=== PATIENT | female | born 1950 | race Caucasian/White ===

== ENCOUNTER 2023-08-03 14:30 | Outpatient (REF) | payer MEDICARE, OTHER, SELFPAY ==
[2023-08-03 15:33] LABS: Influenza A PCR NEGATIVE (Negative); Influenza B PCR NEGATIVE (Negative); Resp Syncy Virus RNA Qual PCR NEGATIVE (Negative); SARS COV2 PCR INHOUSE NEGATIVE (Negative)
== END 2023-08-03 14:31 | disposition home or self-care (01) ==
LOC: HO.LNP 14:30
PROVIDERS: Visit Provider Hospitalist
DX: Z11.52 Encounter for screening for COVID-19 (principal); Z20.822 Contact with and (suspected) exposure to COVID-19; J02.9 Acute pharyngitis, unspecified; R09.89 Other specified symptoms and signs involving the circulatory and respiratory systems
CPT/HCPCS: 0241U

== ENCOUNTER → 2024-05-14 15:01 | Outpatient (BNVA) | payer OTHER, SELFPAY | PROVIDERS: PCP Urology; Visit Provider Physician Assistant Medical | DX: S80.01XA Contusion of right knee, initial encounter (principal); S80.02XA Contusion of left knee, initial encounter; W01.0XXA Fall on same level from slipping, tripping and stumbling without subsequent striking against object, initial encounter | CPT/HCPCS: 73564; 99203 ==

== ENCOUNTER → 2024-05-19 11:53 | Outpatient (BNVA) | payer OTHER, SELFPAY | PROVIDERS: PCP Urology; Visit Provider Physician Assistant Medical | DX: S80.01XA Contusion of right knee, initial encounter (principal); S80.02XA Contusion of left knee, initial encounter; W01.0XXA Fall on same level from slipping, tripping and stumbling without subsequent striking against object, initial encounter | CPT/HCPCS: 99213 ==

== ENCOUNTER → 2024-05-22 15:33 | Outpatient (BNVA) | payer OTHER, SELFPAY | PROVIDERS: PCP Urology; Visit Provider Physician Assistant Medical | DX: S80.02XD Contusion of left knee, subsequent encounter (principal); S80.211D Abrasion, right knee, subsequent encounter; W01.0XXD Fall on same level from slipping, tripping and stumbling without subsequent striking against object, subsequent encounter | CPT/HCPCS: 99213 ==

== ENCOUNTER → 2024-06-02 14:53 | Outpatient (BNVA) | payer OTHER, SELFPAY | PROVIDERS: PCP Urology; Visit Provider Physician Assistant Medical | DX: S80.01XD Contusion of right knee, subsequent encounter (principal); S80.02XD Contusion of left knee, subsequent encounter; W01.0XXD Fall on same level from slipping, tripping and stumbling without subsequent striking against object, subsequent encounter | CPT/HCPCS: 99213 ==

== ENCOUNTER 2024-06-02 16:10 | Emergency (ER) | payer MEDICARE, OTHER, SELFPAY ==
--- NOTE | ~2024-06-02 | XR_ITS ---
EXAMINATION: X-ray right knee X-ray left knee CLINICAL INFORMATION: Fall. Right knee open wound COMPARISON: X-ray right knee 05/14/2024 TECHNIQUE: Right knee 4 views. Left knee 4 views. FINDINGS: Right knee: Tricompartment marginal spurring. Moderate to severe patellofemoral arthritis. No evidence of acute fracture, malalignment. No destructive lesion. Superior patella enthesopathy. Trace suprapatellar joint fluid. The clinically reported wound is not clearly evident on x-ray. Apparent soft tissue swelling anterior to the proximal tibia. Left knee: Marginal spurring in the 3 compartments. Moderate patellofemoral arthritis. No or evidence of acute fracture, malalignment. No aggressive bony lesion seen. Small ossific density in the posterior joint space, could reflect a loose body. XR/XR knee LT 4V IMPRESSION: Right knee: Degenerative changes. No evidence of acute fracture. Left knee: Degenerative changes. No evidence of acute fracture. Possible small posterior loose body..
--- NOTE | ~2024-06-02 | XR_ITS ---
EXAMINATION: X-ray right knee X-ray left knee CLINICAL INFORMATION: Fall. Right knee open wound COMPARISON: X-ray right knee 05/14/2024 TECHNIQUE: Right knee 4 views. Left knee 4 views. FINDINGS: Right knee: Tricompartment marginal spurring. Moderate to severe patellofemoral arthritis. No evidence of acute fracture, malalignment. No destructive lesion. Superior patella enthesopathy. Trace suprapatellar joint fluid. The clinically reported wound is not clearly evident on x-ray. Apparent soft tissue swelling anterior to the proximal tibia. Left knee: Marginal spurring in the 3 compartments. Moderate patellofemoral arthritis. No or evidence of acute fracture, malalignment. No aggressive bony lesion seen. Small ossific density in the posterior joint space, could reflect a loose body. XR/XR knee RT 4V IMPRESSION: Right knee: Degenerative changes. No evidence of acute fracture. Left knee: Degenerative changes. No evidence of acute fracture. Possible small posterior loose body..
[2024-06-02 17:05] VITALS: BP 129/68; PULSE 73; RESP 18; O2SAT 99; BMI 75.8
--- NOTE | 2024-06-02 17:05 | ED_ITS ---
HPI - Fall General Chief Complaint: Fall Stated Complaint: Fell on [facility] Property Time Seen by Provider: 06/02/24 20:57 Source: patient and old records reviewed Mode of arrival: ambulatory Limitations: no limitations History of Present Illness ED Provider: MONTY QUIROGA Narrative: 73 yo female not on thinners being evaluated at work connection for R knee pain post fall at work then leaving appointment trip and fall outside no head strike or LOC has pain to both knees and abrasion R knee landed on hands - no headstrike was helped up. She is at baseline no confusion or vomiting MD complaint: fall Onset (ago): minute(s) ([employer]) Fall from: standing Fall witnessed: yes, by bystander Place fall occurred: street Loss of consciousness: none Prolonged down time: no Symptoms prior to fall: none Context: tripped/slipped Location of injury: other (both hands) Location of injury - extremities: bilateral: elbow and knee Severity: mild Quality: dull Associated symptoms (after fall): denies Related Data Previous Rx's ?Medication ?Instructions ?Recorded doxycycline monohydrate 100 mg 100 mg PO BID 14 days #28 tabs 08/03/23 tablet cephalexin 250 mg capsule 250 mg PO QID 10 days #40 caps 05/22/24 cane #1 ea 06/02/24 Allergies Allergy/AdvReac Type Severity Reaction Status Date / Time crab Allergy Hives Verified 06/02/24 17:10 codeine AdvReac Anxiety Verified 06/02/24 17:09 Sulfa (Sulfonamide AdvReac Nausea Verified 06/02/24 17:09 Antibiotics) Review of Systems Review of Systems: Constitutional : No Fever, No Chills ENT/Mouth : No Ear Pain, No Hoarseness, No sore throat Eyes: No Eye Pain, No Swelling, No Redness, No Foreign Body Cardiovascular : No Chest Pain, No SOB Respiratory : No Cough, No Dyspnea Gastrointestinal : No Nausea, No Vomiting, No Diarrhea, No abdominal Pain Genitourinary : No Dysuria, No Hematuria Musculoskeletal : positive joint pain, No Myalgias, pos Joint Swelling Skin : No Skin lacerations, No rash, pos abrasions Neuro : No Weakness, No Numbness, No Loss of Consciousness, No Dizziness, No Headache All other systems reviewed and are negative [facility] Past Medical History Attestation statement: The following information was validated with the patient. Source: old records reviewed Medical History Sore throat Social History Social History (Updated 06/02/24 @ 21:38 by Katy James DO) Patient Tobacco Use Status: Never used Tobacco Physical Exam Vital Signs: Vital Signs: Last Vital Signs Temp 98.3 F 06/02/24 20:57 Pulse 68 06/02/24 20:57 Resp 16 06/02/24 20:57 BP 138/66 06/02/24 20:57 Pulse Ox 100 06/02/24 20:57 O2 Del Method Room Air 06/02/24 20:57 BMI result Body Mass Index 75.8 Appearance: Alert. Oriented X3. No acute distress. Eyes: Pupils equal, round and reactive to light. ENT: Pharynx normal. atraumatic Neck: Normal inspection. Neck supple. CVS: Normal heart rate and rhythm. Pulses normal. Respiratory: No respiratory distress. Breath sounds normal. Abdomen: Soft and nontender. Skin: Skin warm and dry. Normal skin color. Normal skin turgor. Extremities: No lower extremity edema. No calf ttp both hand mild contusion but normal ROM no swelling or deformity NV intact elbows normal ROM no crepitus, both knees contusion R knee superficial abrasion distal NV intact Neuro: Oriented X 3. No motor deficit. No sensory deficit. Course Course Course Narrative: This is a Rapid Medical Examination (RME) performed by Jarocho Payton PA-C in triage. Full HPI, ROS, assessment and treatment plan per primary provider in the Main ED. 73 yo female presents to the ER for evaluation of bilateral knee pain after she tripped and fell on uneven concrete while she was walking out of [employer]. She fell onto both knees, scraping the right knee and resulting in 6/10 pain. She couldnt get up on her own but was able to ambulate when she was helped up. superficial abrasion on right knee. patient wants to make sure she doesnt have a fracture as this is a repeat injury. Plan: XR bilateral knees Medical Decision Making Medical Decision Making MDM Narrative: 73 yo female recent R knee injury being treated at work connection tripped outside work connection isolated injury to the R knee/L knee and both hands has contusion to R knee no head or neck trauma normal ROM and exam to both hands all extremities she is NV intact at this time xrays ordered, wound care. will write Rx for cane. No head or neck trauma GCS 15 and not on thinners Differential Diagnosis Differential Diagnoses: The differential diagnosis associated with the presentation includes sprain, strain, contusion, fracture Admission/Observation Consideration of admission/observation: Escalation of care including admission/observation considered at baseline stable for DC Independent Interpretation I performed an independent interpretation of an: Plain X-Ray (no fracture) Radiology Impression Discussion of test interpretation with radiology: I have reviewed the radiologist's reading. Independent Historian Clinical information obtained from an independent historian. History obtained from or confirmed by: Friend External Record Review External record reviewed: Outpatient record Prescription Management I considered prescription management with: Pain Medication Discharge Plan Discharge Clinical Impression: Abrasion Contusion of knee Qualifiers: Encounter type: initial encounter Laterality: right Qualified Code(s): S80.01XA - Contusion of right knee, initial encounter Contusion of hand Qualifiers: Encounter type: initial encounter Laterality: unspecified laterality Qualified Code(s): S60.229A - Contusion of unspecified hand, initial encounter Patient Disposition: Home, Self-Care Instructions: Contusion in Adults (ED), Abrasion (ED) Additional Instructions: continue to follow up with work connection and your doctor change dressing daily monitor for redness, yellow drainage, increased pain or swelling get a cane for the knee if you need it will order one prescription you can take to medical supply store use antibiotic ointment on the knee twice a day no fractures seen on xray discussed small fragment seen posterior L knee no pain at that site Prescriptions: New (DME) cane Device See Rx Instructions .Route Qty: 1 0RF Rx Instructions: As directed No Action doxycycline monohydrate 100 mg tablet 100 mg PO BID 14 Days Qty: 28 0RF cephalexin 250 mg capsule 250 mg PO QID 10 Days Qty: 40 0RF Print Language: Irish
[2024-06-02 20:57] VITALS: BP 138/66; PULSE 68; RESP 16; TEMP 36.8; O2SAT 100
[2024-06-02 22:28] VITALS: BP 138/66; PULSE 68; RESP 16; TEMP 36.8; O2SAT 100
--- OUTSIDE RECORDS SUMMARY | 2024-06-04 07:54 | XMS_ITS | Continuity of Care Document ---
Author Organization [facility] Address [address] [place] [address]- Care Team Providers Care Assembler Body Name Role Phone Srinath Baker MD Primary Care Physician Encounter [facility] Date(s): 11/01/23 - 12/01/23 [facility] [address] [place] [address]- Allergies, Adverse Reactions, Alerts Substance Reaction Severity Status codeine Active sulfamethoxazole Active cortisone Active Dust Active Pet Dander Active Problem List Condition Confirmation Course Effective Dates Status H ealth Status Informant Arthritis Confirmed Active Herpes simplex vulvovaginitis Confirmed Active Obese class I Confirmed Active Obesity Confirmed Active Urinary urgency Confirmed Active Chicken pox Confirmed Active Vulvitis Confirmed Active Social History Social History Type Response Smoking Status Never smoker entered on: 02/20/14 Sex Patient Care team information Care Team Personnel Name: Srinath Baker MD Position: S Physician - Primary Care Member Role: PCP Address: Address: [address] [place] [address] Care Team Related Persons Name: ESTRELLA RICHEY Address: home [address] [place] [id number] Name: PAOLA TORRES Address: home [address] [place] [address]
--- OUTSIDE RECORDS SUMMARY | 2024-06-04 07:54 | XMS_ITS | Continuity of Care Document ---
Author Organization [facility] Address [address] [place] [address]- Care Team Providers Care Skid Worker Name Role Phone Srinath Baker MD Primary Care Physician [phone] Encounter [facility] Date(s): 05/21/24 - 05/28/24 [facility] [address] [place] [address]- Attending Physician: Gregg HOYOS, Shalini Dixon Allergies, Adverse Reactions, Alerts Substance Reaction Severity Status codeine Active sulfamethoxazole Active cortisone Active Pet Dander Active Dust Active Medications Multivitamin 0 Refills, Maintenance, 01/18/24 11:44:00 EDT, Partial fill upon patient request if the prescription is for a schedule II opioid drug. Start Date: 01/18/24 Status: Ordered Valtrex 500 mg oral tablet 500 mg, 1, tablet, By Mouth, 2 times a day, for 5 days, # 10 tablet, Refills 0, Tot. Refills 0, Acute 06/01/24 10:26:00 EDT, 05/27/24 10:26:00 EDT, Route to Pharmacy Electronically, [facility]/pharmacy #[id number], Partial fill upon patient request if the prescrip... Start Date: 05/27/24 Stop Date: 06/01/24 Status: Ordered Vitamin A Daily, 0 Refills, Maintenance, 01/18/24 11:44:00 EDT, Partial fill upon patient request if the prescription is for a schedule II opioid drug. Start Date: 01/18/24 Status: Ordered Vitamin D3 1000 intl units oral capsule 1 capsule = 25 mcg, By Mouth, Daily, 0 Refills, Maintenance, 01/18/24 11:44:00 EDT, Partial fill upon patient request if the prescription is for a schedule II opioid drug. Start Date: 01/18/24 Status: Ordered Problem List Condition Confirmation Course Effective Dates Status H ealth Status Informant Arthritis Confirmed Active Herpes simplex vulvovaginitis Confirmed Active Obese class I Confirmed Active Obesity Confirmed Active Urinary urgency Confirmed Active Chicken pox Confirmed Active Vulvitis Confirmed Active Vital Signs Most recent to oldest [Reference Range]: 1 Height 156.0 cm (05/21/24 4:29 PM) Weight 84.0 kg (05/21/24 4:29 PM) Body Mass Index [18.5-24.99 kg/m2] 34.52 kg/m2 *>HHI* (05/21/24 4:29 PM) Blood Pressure [90-138/55-84 mm Hg] 132/ 82mm Hg (05/21/24 4:29 PM) Blood pressure sites Arm, left (05/21/24 4:29 PM) Weight Obtained Via Standing scale (05/21/24 4:29 PM) Social History Social History Type Response Smoking Status Never smoker entered on: 02/20/14 Sex Note * Liu Johnson: PERFORM Event Display: Patient Education/Instruction Authored Date: [id number] Ambulatory Adult Visit Summary [facility] [address] [place] [address] Name: ELAINE KNOWLES : 1950?? Visit: 05/21/2024 16:19?? Ambulatory Visit Instructions ?? Your Care Team Primary Care Provider Samuel CHILDS, Srinath Brito? This Visit Provider Gregg HOYOS, Shalini Dixon Your Diagnosis Ulceration of vulva Vitals Signs Systolic Blood Pressure: 132 mm Hg Height: 156 cm Diastolic Blood Pressure: 82 mm Hg Weight: 84 kg ?? Body Mass Index:??34.52 kg/m2??Critical ?? Body surface area: 1.91 What to do next Future Orders HSV1 And 2 PCR On Lesion - Routine, Vulva, Once, Collected, 05/21/24 16:40:00 EDT, [facility], Swab?? Medications The list below reflects the information in our records and provided by you today along with any changes made during this visit. Please continue your medications until treatment is completed or stopped by your provider. If this is different from the information you have or there are other questions,please contact the prescribing provider. What How Much When Instructions Unchanged Cholecalciferol (Vitamin D3 1000 intl units oral capsule) 1 capsule Oral Daily Unchanged Multivitamin Unchanged Vitamin A Daily Test Performed Below is a partial list of the tests performed during your Visit. You may have had other tests and procedures not included in this list. Please discuss all test results with your provider. HSV1 And 2 PCR On Lesion?-- Results Pending -- Medications and Immunizations Administered Medications Given During Visit No medications given during this visit.?? Allergies (NKA means No Known Allergies) Dust Pet Dander codeine cortisone sulfamethoxazole Common Emergency Awareness Tips IS IT A STROKE? Act FAST and Check for these signs: FACE Does the face look uneven? ARM Does one arm drift down? SPEECH Does their speech sound strange? TIME Call at any sign of stroke ?? Heart Attack Signs Chest discomfort: Most heart attacks involve discomfort in the center of the chest and lasts more than a few minutes, or goes away and comes back. It can feel like uncomfortable pressure, squeezing, fullness or pain. Discomfort in upper body: Symptoms can include pain or discomfort in one or both arms, back, neck, jaw or stomach. Shortness of breath: With or without discomfort. Other signs: Breaking out in a cold sweat, nausea, or lightheaded. Remember, MINUTES DO MATTER. If you experience any of these heart attack warning signs, call to get immediate medical attention! ?? Smoking can increase your chances of developing chronic health problems and can cause harmful effects to other family members in your house. If you smoke, you are strongly encouraged to quit. Please call [facility] at [phone] or [phone] ([phone]) or log in to [email or web address] for referrals to smoking cessation programs. ?? The National Suicide Prevention Hotline is available 07/05 if you or someone you know needs to find a reason to keep living. By calling 8-285-460-[employer] (7031) you'll be connected to a skilled, trained counselor at a crisis center in your area. [facility] Health Portal You can view and manage your care through the patient portal or by using a health care anjana of your choosing. [employer] is a website that allows you to securely view your medical information including your hospital discharge summary, office visit summaries, medications and follow-up visits. You can also request appointments, renew medications, and request access to your medical information using a health care anjana of your choosing, or just ask a question. You can enroll at [email or web address] or register during your next office visit. [facility], in keeping with [facility] guidance, no longer requires face masks for staff, patientsor visitors in most situations. Similiar to time spent indoors at other locations, there is the chance that you were exposed to repiratory viruses during your time with us (such as flu or COVID-19). If you develop symptoms concerning for a viral respiratory infection, please seek testing (and treatment if indicated) from your medical provider or home test kit. ?? Disclaimer: The information provided is of a general nature and is intended to be used in conjunction with the recommendations and advice of your health care practitioner. Every effort has been made to ensure that the information provided is accurate and complete at the time it is provided to you however, as your needs change, or, as new information becomes available, different or additional instructions may be required. ?? If you have questions, please consult with your primary care provider or pharmacist, as appropriate. This information is not intended to serve as substitution for assessment and evaluation by a qualified health care provider. If you do not have a primary care provider, you may find a [facility] provider by calling [facility] [employer] Link at [phone]. Patient Care team information Care Team Personnel Name: Srinath Baker MD Position: [facility] Physician - Primary Care Member Role: PCP Address: Address: [address] [place] [address]- Care Team Related Persons Name: ESTRELLA RICHEY Address: home [address] [place] [address] Name: PAOLA TORRES Address: home [address] [place] [address]
--- OUTSIDE RECORDS SUMMARY | 2024-06-04 07:54 | XMS_ITS | Continuity of Care Document ---
[facility] Address [address] [place] [address]- Care Team Providers Care Beef Breaker Name Role Phone Srinath Baker MD Primary Care Physician Encounter [facility] Date(s): 07/20/22 - 08/19/22 [facility] [address] [place] [address]- Attending Physician: Harvey Pennington Admitting Physician: Harvey Pennington Referring Physician: AdmtrHarvey Allergies, Adverse Reactions, Alerts Substance Reaction Severity Status codeine Active sulfamethoxazole Active cortisone Active Medications Aveeno Anti-Itch 3%-1% topical cream 1 application, Topically, 4 times a day, PRN for itching, # 30 Gm, 0 Refills, Maintenance, 229:38:00 EDT, Cream, Partial fill upon patient request if the prescription is for a schedule II opioid drug. Start Date: 04/19/22 Status: Ordered Estrace Vaginal Cream 0.1 mg/g See Instructions, 1 Gm Vaginally Daily at bedtime every night for 2 weeks and then 2-3 times a weekafter that, # 42.5 Gm, 0 Refills, Maintenance, 04/19/22 11:53:00 EDT, [facility]/pharmacy #[id number], Partial fill upon patient request if the prescription is for... Start Date: 04/19/22 Status: Ordered Flonase Daily, 0 Refills, Maintenance, 05/14/18 8:36:48 EDT Start Date: 05/14/18 Status: Ordered Hydrochlorothiazide = 25 mg, By Mouth, Daily, 0 Refills, Maintenance, 02/20/14 10:08:38 Start Date: 02/20/14 Status: Ordered HydroCORTisone 1% Topical 0 Refills, Maintenance Start Date: 04/19/22 Status: Ordered Pravastatin By Mouth, Daily at bedtime, 0 Refills, Maintenance, 05/01/16 16:37:09 Start Date: 05/01/16 Status: Ordered Restasis 0.05% ophthalmic emulsion 1 drops, Eyes, Both, Every 12 hours, 0 Refills, Maintenance, 05/01/16 16:36:53 Start Date: 05/01/16 Status: Ordered Singulair By Mouth, Daily, 0 Refills, Maintenance, 05/14/18 8:36:43 EDT Start Date: 05/14/18 Status: Ordered Triple Antibiotic Topically, 3 times a day, 0 Refills, Maintenance, 04/19/22 9:37:00 EDT, Partial fill upon patient request if the prescription is for a schedule II opioid drug. Start Date: 04/19/22 Status: Ordered Vitamin D3 2000 intl units oral capsule 1 capsule = 2,000 International_Units, By Mouth, Daily, 0 Refills, Maintenance, 02/20/14 10:08:50 Start Date: 02/20/14 Status: Ordered Problem List Condition Confirmation Course Effective Dates Status Health St [facility] Informant Obese class I Confirmed Active Obesity Confirmed Active Social History Social History Type Response Smoking Status Never smoker entered on: 02/20/14 Sex Patient Care team information Personnel Name: Srinath Baker MD Address: Address: [address] [place] [id number]
--- OUTSIDE RECORDS SUMMARY | 2024-06-04 07:54 | XMS_ITS | Continuity of Care Document ---
Author Organization [facility] Address [address] [place] [address]- Care Team Providers Care Deck Cadet Name Role Phone Srinath Baker MD Primary Care Physician Encounter [facility] Date(s): 04/21/24 - 04/28/24 [facility] [address] [place] [address]- Attending Physician: Gregg HOYOS, Shalini Dixon Allergies, Adverse Reactions, Alerts Substance Reaction Severity Status codeine Active sulfamethoxazole Active cortisone Active Dust Active Pet Dander Active Medications Multivitamin 0 Refills, Maintenance, 01/18/24 11:44:00 EDT, Partial fill upon patient request if the prescription is for a schedule II opioid drug. Start Date: 01/18/24 Status: Ordered Vitamin A Daily, 0 Refills, [...] oldest [Reference Range]: 1 Height 156.0 cm (04/21/24 9:28 AM) Weight 83.4 kg (04/21/24 9:28 AM) Body Mass Index [18.5-24.99 kg/m2] 34.27 kg/m2 *>HHI* (04/21/24 9:28 AM) Blood Pressure [90-138/55-84 mm Hg] 120/ 68mm Hg (04/21/24 9:28 AM) Blood pressure sites Arm, left (04/21/24 9:28 AM) Weight Obtained Via Standing scale (04/21/24 9:28 AM) Social History Social History Type Response Smoking Status Never smoker entered on: 02/20/14 Sex Patient Care team information Care Team Personnel Name: Srinath Baker MD Position: [facility] Physician - Primary Care Member Role: PCP Address: Address: [address] [place] [address]- Care Team Related Persons Name: ESTRELLA RICHEY Address: home [address] [place] [id number] Name: PAOLA TORRES Address: home [address] [address]
--- OUTSIDE RECORDS SUMMARY | 2024-06-04 07:54 | XMS_ITS | Continuity of Care Document ---
Author Organization [facility] Address [address] [place] [address]- Care Team Providers Care Correspondence Transcriber Name Role Phone Srinath Baker MD Primary Care Physician En[place] [facility] [place] Date(s): 06/22/22 - 07/22/22 [facility] [address] [place], [place] [address] Allergies, Adverse Reactions, Alerts Substance Reaction Severity Status codeine Active sulfamethoxazole Active cortisone Active Medications Aveeno Anti-Itch 3%-1% topical cream 1 application, Topically, 4 times a day, PRN for itching, # 30 Gm, 0 Refills, Maintenance, :38:00 EDT, Cream, Partial fill upon patient request if the prescription is for a schedule II opioid drug. Start Date: 04/19/22 Status: Ordered Estrace Vaginal Cream 0.1 mg/g See Instructions, 1 Gm Vaginally Daily at bedtime every night for 2 weeks and then 2-3 times a weekafter that, # 42.5 Gm, 0 Refills, Maintenance, 04/19/22 11:53:00 EDT, [facility]/pharmacy #[id number], Partial fill upon patient request if [...] Condition Confirmation Course Effective Dates Status Health atus Informant Obese class I Confirmed Active Obesity Confirmed Active Social History Social History Type Response Smoking Status Never smoker entered on: 02/20/14 Sex Patient Care team information Personnel Name: Samuel CHILDS, Srinath Brito Address: Address: [address] [place] [address]
--- OUTSIDE RECORDS SUMMARY | 2024-06-04 07:54 | XMS_ITS | Continuity of Care Document ---
[facility] Address [address], [address] [place] [address]- Care Team Providers Care Cargo And Container Inspector Name Role Phone Srinath Baker MD Primary Care Physician [phone] [id number]20[facility] - 07/27/22 [facility] [address] [place], [place] [address] Attending Physician: Meg Hughes DO Referring Physician: Srinath Baker MD Allergies, Adverse Reactions, Alerts Substance Reaction Severity [...] Gm, 0 Refills, Maintenance, 04/19/22 11:53:00 EDT, [facility]/pharmacy #[id number], Partial fill upon patient request [...] class I Confirmed Active Obesity Confirmed Active Vital Signs Most recent to oldest [Reference Range]: 1 Height 156.0 cm (07/20/22 9:42 AM) Weight 83.1 kg (07/20/22 9:42 AM) Body Mass Index [18.5-24.99 kg/m2] 34.15 kg/m2 *>HHI* (07/20/22 9:42 AM) Blood Pressure [90-138/55-84 mm Hg] 118/ 64mm Hg (07/20/22 9:42 AM) Blood pressure sites Arm, right (07/20/22 9:42 AM) Dry Weight 83.1 kg (07/20/22 9:42 AM) Weight Obtained Via Standing scale (07/20/22 9:42 AM) Dry Weight Obtained Via Standing scale (07/20/22 9:42 AM) Social History Social History Type Response Smoking Status Never smoker entered on: 02/20/14 Sex Patient Care team information Personnel Name: Srinath Baker MD Address: Address: [address] [place] [address]
--- OUTSIDE RECORDS SUMMARY | 2024-06-04 07:54 | XMS_ITS | Continuity of Care Document ---
Author Organization [facility] Address [address] [place] [address]- Care Team Providers Care Tool Technician Name Role Phone Srinath Baker MD Primary Care Physician Encounter [facility] [place] Date(s): 01/17/24 - 02/16/24 [facility] [address] [place], [place] [address] Allergies, Adverse Reactions, Alerts [...] Primary Care Member Role: PCP Address: Address: [address] [place] [address]- Care Team Related Persons Name: ESTRELLA RICHEY Address: home [address] [place] [address] Name: PAOLA TORRES Address: home [address] [place] [address]
--- OUTSIDE RECORDS SUMMARY | 2024-06-04 07:54 | XMS_ITS | Continuity of Care Document ---
Author Organization [facility] [place] Address [address] [place] [address]- Care Team Providers Care Knurling Machine Operator Name Role Phone Srinath Baker MD Primary Care Physician [id number] Date(s): 04/25/22 - 05/25/22 [facility] [place] [address] [place], [place] [address] Allergies, Adverse Reactions, Alerts Substance Reaction Severity Status codeine Active sulfamethoxazole Active cortisone Active Medications Flonase Daily, 0 Refills, Maintenance, 05/14/18 8:36:48 EDT Start Date: 05/14/18 Status: Ordered Hydrochlorothiazide = 25 mg, By Mouth, Daily, 0 Refills, Maintenance, 02/20/14 10:08:38 Start Date: 02/20/14 Status: Ordered Pravastatin By Mouth, Daily at bedtime, 0 Refills, Maintenance, 05/01/16 16:37:09 Start Date: 05/01/16 Status: Ordered Restasis 0.05% ophthalmic emulsion 1 drops, Eyes, Both, Every 12 hours, 0 Refills, Maintenance, 05/01/16 16:36:53 Start Date: 05/01/16 Status: Ordered Singulair By Mouth, Daily, 0 Refills, Maintenance, 05/14/18 8:36:43 EDT Start Date: 05/14/18 Status: Ordered Vitamin D3 2000 intl units oral capsule 1 capsule = 2,000 International_Units, By Mouth, Daily, 0 Refills, Maintenance, 02/20/14 10:08:50 Start Date: 02/20/14 Status: Ordered Problem List Condition Effective Dates Status Health Status Inform ant Obese class II(Confirmed) Active Obesity(Confirmed) Active Social History Social History Type Response Smoking Status Never smoker entered on: 02/20/14 Sex
--- OUTSIDE RECORDS SUMMARY | 2024-06-04 07:54 | XMS_ITS | Continuity of Care Document ---
Author Organization [facility] Address [address] [place] [address]- Care Team Providers Care Diver'S Tender Name Role Phone Srinath Baker MD Primary Care Physician [place] [facility] [place](s[place] 01/21/24 - 02/20/24 [facility] [address] [place], [place] [address] Allergies, Adverse Reactions, Alerts Substance Reaction Severity Status codeine Active sulfamethoxazole Active Pet Dander Active cortisone Active Dust Active Medications Multivitamin 0 Refills, [...] Care Member Role: PCP Address: Address: [address] [place] [address]- Care Team Related Persons Name: ESTRELLA RICHEY Address: home [address] [place] [address] Name: PAOLA TORRES Address: home [address] [place] [address]
--- OUTSIDE RECORDS SUMMARY | 2024-06-04 07:54 | XMS_ITS | Continuity of Care Document ---
Author Organization [facility] Address [address] [place] [address]- Care Team Providers Care Hair Tinter Name Role Phone Srinath Baker MD Primary [id number] Date(s): 01/02/23 - 01/09/23 [facility] [address] [place] [address]- Attending Physician: Mary Kumari MD Referring Physician: Meg Hughes DO Allergies, Adverse Reactions, Alerts Substance Reaction Severity Status codeine Active sulfamethoxazole Active cortisone Active Dust Active Pet Dander Active Medications Flonase Daily, 0 Refills, Maintenance, 05/14/18 8:36:48 EDT Start Date: 05/14/18 Status: Ordered hydrocortisone 1% topical ointment 1 application, Topically, 2 times a day, PRN Itch, # 25 Gm, 0 Refills, Maintenance, 01/02/23 10:47:00 EDT, Ointment, [id number], Partial fill upon patient request if the prescription is for aschedule II opioid drug., 1 application Topically 2... Start Date: 01/02/23 Stop Date: 01/16/23 Status: Ordered Multivitamin Daily, 0 Refills, Maintenance, 01/02/23 10:45:00 EDT, Partial fill upon patient request if the prescription is for a schedule II opioid drug. Start Date: 01/02/23 Status: Ordered Pravastatin = 40 mg, By Mouth, Daily at bedtime, 0 Refills, Maintenance, 05/01/16 16:37:09 EDT Start Date: 05/01/16 Status: Ordered Restasis 0.05% ophthalmic emulsion 1 drops, Eyes, Both, Every 12 hours, 0 Refills, Maintenance, 05/01/16 16:36:53 Start Date: 05/01/16 Status: Ordered Singulair By Mouth, Daily, 0 Refills, Maintenance, 05/14/18 8:36:43 EDT Start Date: 05/14/18 Status: Ordered Vitamin D3 2000 intl units oral capsule 5000 IU, By Mouth, Daily, 0 Refills, Maintenance, 02/20/14 10:08:50 EDT Start Date: 02/20/14 Status: Ordered Problem List Condition Confirmation Course Effective Dates Status H ealth Status Informant Arthritis Confirmed Active Herpes simplex vulvovaginitis Confirmed Active Obese class I Confirmed Active Obesity Confirmed Active Urinary urgency Confirmed Active Chicken pox Confirmed Active Vulvitis Confirmed Active Vital Signs Most recent to oldest [Reference Range]: 1 Height 156.0 cm (01/02/23 10:34 AM) Weight 84.0 kg (01/02/23 10:34 AM) Body Mass Index [18.5-24.99 kg/m2] 34.52 kg/m2 *>HHI* (01/02/23 10:34 AM) Blood Pressure [90-138/55-84 mm Hg] 110/ 68mm Hg (01/02/23 10:34 AM) Blood pressure sites Arm, left (01/02/23 10:34 AM) Dry Weight 84.0 kg (01/02/23 10:34 AM) Weight Obtained Via Standing scale (01/02/23 10:34 AM) Dry Weight Obtained Via Standing scale (01/02/23 10:34 AM) Social History Social History Type Response Smoking Status Never smoker entered on: 02/20/14 Sex Note * Kathy Charles: PERFORM, SIGN, VERIFY Event Display: Patient Education/Instruction Authored Date: [id number] [facility] Clinical Summary Name ELAINE KNOWLES Age 72 Years 1950 PCP Samuel CHILDS, Srinath Brito PCP Visit Date 01/02/2023 10:06:00 Additional Instructions: Apply small thin film of 1% hydrocortisone ointment to the itchy areas on your vulva twice daily x7-14 days. May discontinue when symptoms resolved. Follow-up if this is not helping her symptoms. If you do find it helpful, may use as needed. Scheduled Appointments?? Future Appointments ?*[facility] ?[address] ?[address] ?[place],??[place],??[address] ?Phone:??--?Fax:??-- ?Appt. Date:??01/04/2023?9:00 AM ?Scheduled Provider:??Ellen DO , Meg Follow-Up Instructions ?? With: Address: When: Mary Kumari [address] [facility] [address], [facility] [place] [address] Business (1) In 2 years 01/02/2025 Comments: Routine HAND SHAPER care Diagnosis Acute vulvitis; Encounter for gynecological examination (general) (routine) without abnormal findings; Urgency of urination Medications: Please continue your medications until treatment is completed or stopped by your provider. Discuss any questions related to medications with your provider. Medications to Continue Taking That Have Changed [id number], [address] [place] [phone], [phone] - Hydrocortisone Topical (hydrocortisone 1% topical ointment) 1 anjana Topically twice a day as neededItch for 14 Days. Refills: 0. Next Dose: Medications to Continue with No Changes These medications were not printed or sent to your pharmacy Cholecalciferol (Vitamin D3 2000 intl units oral capsule) 5000 IU Oral Daily. Next Dose: Cyclosporine Ophthalmic (Restasis 0.05% ophthalmic emulsion) 1 Drops Both eyes every 12 hours. Next Dose: Fluticasone Nasal (Flonase) Daily. Next Dose: Montelukast (Singulair) Oral Daily. Next Dose: Multivitamin Daily. Next Dose: Pravastatin 40 Milligram Oral Daily at Bedtime. Next Dose: No Longer Take the Following Medications Bacitracin/Neomycin/Polymyxin B Topical (Triple Antibiotic) Topically 3 times a day. Calamine/Pramoxine Topical (Aveeno Anti-Itch 3%-1% topical cream) 1 anjana Topically 4 times a day as needed for itching. Estradiol Topical (Estrace Vaginal Cream 0.1 mg/g) 1 Gm Vaginally Daily at bedtime every night for 2 weeks and then 2-3 times a week after that. Refills: 0. Hydrochlorothiazide 25 Milligram Oral Daily. Allergy Info:?? Pet Dander; Dust; cortisone; sulfamethoxazole; codeine Medications Given This Visit Future Orders ?Complete Urinalysis/Reflex Culture? Order Date:01/02/23?- Complete on or after?01/02/23 Vital Signs Height 156.0 cm Weight 84.0 kg BMI 34.52 kg/m2 Blood Pressure 110 mm Hg/68 mm Hg Temperature Pulse Rate Respiratory Rate 02 Sat Mode of Delivery / You can now view a summary of your hospital visit from the comfort of your home through a free online portal called [employer]. [employer] is a website that allows you to securely view your medical information including discharge summary, medications and follow-up visits. ??You can alsosend a secure electronic message to your doctor???s office to request appointments, renew medications or just ask a question. You can enroll at [email or web address] or register during your next office visit. Disclaimer:?? The information provided is of a general nature and is intended to be used in conjunction with the recommendations and advice of your health care practitioner. ??Every effort has been made to ensure that the information provided is accurate and complete at the time it is provided to you however, as your needs change, or, as new ??information becomes available, different or additional instructions may be required. If you have questions, please consult with your primary care provider or pharmacist, as appropriate. ??This information is not intended to serve as substitution for assessment and evaluation by a qualified health care provider. If you do not have a primary care provider, you may find a [facility] provider by calling [facility] at [phone]. For information about the plan of care including goals and instructions for your diagnosis, please see the patient education orders section of this document. Patient Education Materials?? The content of this educational material or handout may have been modified, supplemented, or adapted from its original content and format to support your individualized medical care. * Quoc CHILDS, Mary F: PERFORM, SIGN, VERIFY Event Display: Patient Education/Instruction Authored Date: [id number] [facility] *[facility] Clinical Summary Name ELAINE KNOWLES Age 72 Years 1950 PCP Samuel CHILDS, Srinath Brito PCP Visit Date 01/02/2023 10:06:00 Additional Instructions: Apply small thin film of 1% hydrocortisone ointment to the itchy areas on your vulva twice daily x7-14 days. May discontinue when symptoms resolved. Follow-up if this is not helping her symptoms. If you do find it helpful, may use as needed. Scheduled Appointments?? Future Appointments ?No Future Appointments Scheduled Follow-Up Instructions ?? With: Address: When: Mary Kumari [address] [facility] [address], [facility] [place] [address] Business (1) In 2 years 01/02/2025 Comments: Routine HAND SHAPER care Diagnosis Acute vulvitis; Encounter for gynecological examination (general) (routine) without abnormal findings; Urgency of urination Medications: Please continue your medications until treatment is completed or stopped by your provider. Discuss any questions related to medications with your provider. Medications to Continue Taking That Have Changed [facility]/pharmacy #[id number], [address] [place] [phone], [phone] - Hydrocortisone Topical (hydrocortisone 1% topical ointment) 1 anjana Topically twice a day as neededItch for 14 Days. Refills: 0. Next Dose: Medications to Continue with No Changes These medications were not printed or sent to your pharmacy Cholecalciferol (Vitamin D3 2000 intl units oral capsule) 5000 IU Oral Daily. Next Dose: Cyclosporine Ophthalmic (Restasis 0.05% ophthalmic emulsion) 1 Drops Both eyes every 12 hours. Next Dose: Fluticasone Nasal (Flonase) Daily. Next Dose: Montelukast (Singulair) Oral Daily. Next Dose: Multivitamin Daily. Next Dose: Pravastatin 40 Milligram Oral Daily at Bedtime. Next Dose: No Longer Take the Following Medications Bacitracin/Neomycin/Polymyxin B Topical (Triple Antibiotic) Topically 3 times a day. Calamine/Pramoxine Topical (Aveeno Anti-Itch 3%-1% topical cream) 1 anjana Topically 4 times a day as needed for itching. Estradiol Topical (Estrace Vaginal Cream 0.1 mg/g) 1 Gm Vaginally Daily at bedtime every night for 2 weeks and then 2-3 times a week after that. Refills: 0. Hydrochlorothiazide 25 Milligram Oral Daily. Allergy Info:?? Pet Dander; Dust; cortisone; sulfamethoxazole; codeine Medications Given This Visit Future Orders ?Complete Urinalysis/Reflex Culture? Order Date:01/02/23?- Complete on or after?01/02/23 Vital Signs Height 156.0 cm Weight 84.0 kg BMI 34.52 kg/m2 Blood Pressure 110 mm Hg/68 mm Hg Temperature Pulse Rate Respiratory Rate 02 Sat Mode of Delivery / You can now view a summary of your hospital visit from the comfort of your home through a free online portal called [employer]. [employer] is a website that allows you to securely view your medical information including discharge summary, medications and follow-up visits. ??You can alsosend a secure electronic message to your doctor???s office to request appointments, renew medications or just ask a question. You can enroll at [email or web address] or register during your next office visit. Disclaimer:?? The information provided is of a general nature and is intended to be used in conjunction with the recommendations and advice of your health care practitioner. ??Every effort has been made to ensure that the information provided is accurate and complete at the time it is provided to you however, as your needs change, or, as new ??information becomes available, different or additional instructions may be required. If you have questions, please consult with your primary care provider or pharmacist, as appropriate. ??This information is not intended to serve as substitution for assessment and evaluation by a qualified health care provider. If you do not have a primary care provider, you may find a [facility] provider by calling [facility] at [phone]. For information about the plan of care including goals and instructions for your diagnosis, please see the patient education orders section of this document. Patient Education Materials?? The content of this educational material or handout may have been modified, supplemented, or adapted from its original content and format to support your individualized medical care. Patient Care team information Care Team Personnel Name: Srinath Baker MD Position: [facility] Physician (General Medicine) Member Role: PCP Address: Address: [address] [place] [address] [place] [address]- Care Team Related Persons Name: KAIDEN ESTRELLA Address: home [address] [place] [id number] Name: PAOLA TORERS Address: [address] [address]
--- OUTSIDE RECORDS SUMMARY | 2024-06-04 07:54 | XMS_ITS | Continuity of Care Document ---
Author Organization [facility] ter Address [address] [place] [address]- Care Team Providers Care Costume Draper Name Role Phone Srinath Baker MD Primary Care Physician [place] [facility] [place] 11/04/19 - 11/11/[address] [address] Attending Physician: Srinath Baker MD Allergies, Adverse Reactions, [...] Effective Dates Status Health Status Inform ant Obesity(Confirmed) Active Social History Social History Type Response Smoking Status Never smoker entered on: 02/20/14 Sex
--- OUTSIDE RECORDS SUMMARY | 2024-06-04 07:54 | XMS_ITS | Continuity of Care Document ---
Author Organization [facility] [employer] [facility] Address [address] [place] [address]- Care Team Providers Care Launch Commander [employer] Name Role Phone Srinath Baker MD Primary Care Physician [phone] [place] [facility] [place] Date(s): 02/16/23 - 03/18/23 [facility] [employer] [facility] [address] [place] [address]- Attending Physician: Harvey Pennington Admitting Physician: AdmtrHarvey Referring Physician: Admtr, Ar8 Allergies, Adverse Reactions, Alerts Substance Reaction Severity [...] Primary Care Member Role: PCP Address: Address: [address] [place] [address]- Care Team Related Persons Name: ESTRELLA RICHEY Address: home [address] [place] [address] Name: PAOLA TORRES Address: home [address] [place] [address]
--- OUTSIDE RECORDS SUMMARY | 2024-06-04 07:54 | XMS_ITS | Continuity of Care Document ---
Author Organization [facility] Address [address] [place] [address]- Care Team Providers Care Cellular Biologist Name Role Phone Srinath Baker MD Primary Care Physician [facility] [id number] Date(s): 11/02/23 - 11/09/23 [facility] [address] [place] [address]- Attending Physician: Gregg HOYOS, Shalini Dixon Allergies, Adverse Reactions, Alerts Substance Reaction Severity Status codeine Active sulfamethoxazole Active cortisone Active Dust Active Pet Dander Active Medications No Known Medications Problem List Condition Confirmation Course Effective Dates Status H ealth Status Informant Arthritis Confirmed Active Herpes simplex vulvovaginitis Confirmed Active Obese class I Confirmed Active Obesity Confirmed Active Urinary urgency Confirmed Active Chicken pox Confirmed Active Vulvitis Confirmed Active Vital Signs Most recent to oldest [Reference Range]: 1 Height 156.0 cm (11/02/23 8:59 AM) Weight 81.4 kg (11/02/23 8:59 AM) Body Mass Index [18.5-24.99 kg/m2] 33.45 kg/m2 *>HHI* (11/02/23 8:59 AM) Blood Pressure [90-138/55-84 mm Hg] 120/ 62mm Hg (11/02/23 8:59 AM) Blood pressure sites Arm, right (11/02/23 8:59 AM) Weight Obtained Via Standing scale (11/02/23 8:59 AM) Social History Social History Type Response Smoking Status Never smoker entered on: 02/20/14 Sex Patient Care team information Care Team Personnel Name: Srinath Baker MD Position: S Physician - Primary Care Member Role: PCP Address: Address: [address] [place] [address]- Care Team Related Persons Name: KAIDEN ESTRELLA Address: home [address] [place] [address] Name: PAOLA TORRES Address: home [address] [place] [address]
--- OUTSIDE RECORDS SUMMARY | 2024-06-04 07:54 | XMS_ITS | Continuity of Care Document ---
Author Organization [facility] Address [address] [place] [address]- Care Team Providers Care Stave Jointer Name Role Phone Srinath Baker MD Primary Care Physician [place] [facility] [place]17[place]24 - 02/16/24 [facility] [address] [place], [place] [address] Allergies, Adverse Reactions, Alerts Substance Reaction [...] Care Member Role: PCP Address: Address: [address] [place] [address]- Care Team Related Persons Name: ESTRELLA RICHEY Address: home [address] [place] [address] Name: PAOLA TORRES Address: home [address] [place] [address]
--- OUTSIDE RECORDS SUMMARY | 2024-06-04 07:55 | XMS_ITS | Continuity of Care Document ---
Author Organization [facility] Address [address] [place] [address]- Care Team Providers Care It Compliance Analyst Name Role Phone Srinath Baker MD Primary Care Physician Encounter [facility] R [id number] Date(s): 11/02/23 - 12/02/23 [facility] [address] [place], [place] [address] Attending Physician: Harvey Pennington Admitting Physician: Harvey Pennington Referring Physician: Harvey Pennington Allergies, Adverse Reactions, Alerts Substance Reaction Severity Status codeine Active sulfamethoxazole Active cortisone Active Dust Active Pet Dander Active Problem List Condition Confirmation Course Effective Dates Status H ealth Status Informant Arthritis Confirmed Active Herpes simplex vulvovaginitis Confirmed Active Obese class I Confirmed Active Obesity Confirmed Active Urinary urgency Confirmed Active Chicken pox Confirmed Active Vulvitis Confirmed Active Procedures Procedure Date Related Diagnosis Body Site Status Bilateral Cataract w/IOL 2010 Completed Colonoscopy 2010 Completed Stereotactic Rt Breast Bx- benign 04/2009 Completed D&C, hysteroscopy 08/2008 Complet ed Tonsillectomy 1964 Completed Social History Social History Type Response Smoking Status Never smoker entered on: 02/20/14 Sex Cardiology * Event Display: Non BH Cardiovascular Results Authored Date: Laboratory * Event Display: Non BH Lab Results Authored Date: * Event Display: Non BH Lab Results Authored Date: * Event Display: Non BH Lab Results Authored Date: MG Breast Views * Event Display: MM Mammogram, Non- BH Authored Date: * Event Display: MM Mammogram, Non- BH Authored Date: * Event Display: MM Mammogram, Non- BH Authored Date: Radiology * Event Display: Non BH Radiology Results Authored Date: * Event Display: Non BH Radiology Results Authored Date: * Event Display: Non BH Radiology Results Authored Date: Patient Care team information Care Team Personnel Name: Srinath Baker MD Position: S Physician - Primary Care Member Role: PCP Address: Address: [address] [place] [address] Care Team Related Persons Name: ESTRELLA RICHEY Address: home [address] [place] [address] Name: PAOLA TORRES Address: home [address] [place] [address]
--- OUTSIDE RECORDS SUMMARY | 2024-06-04 07:55 | XMS_ITS | Continuity of Care Document ---
Author Organization [facility] Address [address] [place] [address]- Care Team Providers Care Gallery Director Name Role Phone Srinath Baker MD Primary Care Physician [place] [facility] [place] [id number] Date(s): 04/18/22 - 05/18/22 [facility] [address] [place], [place] [address] Allergies, Adverse Reactions, Alerts Substance Reaction Severity [...]
--- OUTSIDE RECORDS SUMMARY | 2024-06-04 07:55 | XMS_ITS | Continuity of Care Document ---
Author Organization [facility] Address [address] [place] [address]- Care Team Providers Care Solar Mechanical Engineer Name Role Phone Srinath Baker MD Primary Care Physician [phone] Encounter [facility] Date(s): 04/14/24 - 05/14/24 [facility] [address] [place], [place] [address] Allergies, Adverse Reactions, Alerts Substance Reaction Severity [...] Care Member Role: PCP Address: Address: [address] [place] [address]- Care Team Related Persons Name: ESTRELLA RICHEY Address: home [address] [place] [address] Name: PAOLA TORRES Address: home [address] [place] [address]
--- OUTSIDE RECORDS SUMMARY | 2024-06-04 07:55 | XMS_ITS | Continuity of Care Document ---
Author Organization [facility] Address [address] [place] [address]- Care Team Providers Care Outlet Manager Name Role Phone Srinath Baker MD Primary Care Physician [phone] [place] [facility] [id number] Date(s): 01/02/23 - 02/01/23 [facility] [address] [place] [address]- Attending Physician: Admtr, Harvey Admitting Physician: AdmtrHarvey Referring Physician: Admtr, Ar8 [...] smoker entered on: 02/20/14 Sex Note * Event Display: Non BH Lab Results Authored Date: * Event Display: Non BH Radiology Results Authored Date: * Event Display: Non BH Radiology Results Authored Date: * Event Display: Non BH Radiology Results Authored Date: * Event Display: Non BH Lab Results Authored Date: * Event Display: Non BH Lab Results Authored Date: * Event Display: Non BH Cardiovascular Results Authored Date: MG Breast Views * Event Display: MM Mammogram, Non- BH Authored Date: * Event Display: MM Mammogram, Non- BH Authored Date: * Event Display: MM Mammogram, Non- BH Authored Date: Patient Care team information Care Team Personnel Name: Srinath Baker MD Position: [facility] Physician (General Medicine) Member Role: PCP Address: Address: [address] [place] [address] Care Team Related Persons Name: ESTRELLA RICHEY Address: home [address] [place] [address] Name: PAOLA TORRES Address: home [address] [place] [address]
--- OUTSIDE RECORDS SUMMARY | 2024-06-04 07:55 | XMS_ITS | Continuity of Care Document ---
Author Organization [facility] Address [address] [place] [address]- Care Team Providers Care Line Lead Name Role Phone Srinath Baker MD Primary Care Physician En[facility] Date(s): 01/18/24 - 01/25/24 [facility] [address] [place] [address]- Attending Physician: Gregg HOYOS, Shalini Dixon Allergies, [...] oldest [Reference Range]: 1 Height 156.0 cm (01/18/24 11:45 AM) Weight 83.2 kg (01/18/24 11:45 AM) Body Mass Index [18.5-24.99 kg/m2] 34.19 kg/m2 *>HHI* (01/18/24 11:45 AM) Blood Pressure [90-138/55-84 mm Hg] 124/ 72mm Hg (01/18/24 11:45 AM) Blood pressure sites Arm, right (01/18/24 11:45 AM) Dry Weight 83.2 kg (01/18/24 11:45 AM) Weight Obtained Via Standing scale (01/18/24 11:45 AM) Dry Weight Obtained Via Standing scale (01/18/24 11:45 AM) Social History Social History Type Response Smoking Status Never smoker entered on: 02/20/14 Sex Patient Care team information Care Team Personnel Name: Srinath Baker MD Position: [facility] Physician - Primary Care Member Role: PCP Address: Address: [address] [place] [address] Care Team Related Persons Name: ESTRELLA RICHEY Address: home [address] [place] [address] Name: PAOLA TORRES Address: home [address] [place] [address]
--- OUTSIDE RECORDS SUMMARY | 2024-06-04 07:55 | XMS_ITS | Continuity of Care Document ---
Author Organization [facility] Address [address] [place] [address]- Care Team Providers Care Remote Sensing Surveyor Name Role Phone Srinath Baker MD Primary Care Physician En[facility] Date(s): 01/18/24 - 02/17/24 [facility] [address] [place] [address]- Attending Physician: Harvey Pennington Admitting Physician: Harvey [...] Primary Care Member Role: PCP Address: Address: [address] [place] [address] Care Team Related Persons Name: ESTRELLA RICHEY Address: home [address] [place] [address] Name: PAOLA TORRES Address: home [address] [place] [address]
--- OUTSIDE RECORDS SUMMARY | 2024-06-04 07:55 | XMS_ITS | Continuity of Care Document ---
Author Organization [facility] Address [address] [place] [address]- Care Team Providers Care Art Psychotherapist Or Therapist Name Role Phone Srinath Baker MD Primary Care Physician [phone] [place] [facility] [place] 04/14/24 - 05/14/24 [facility] [address] [place], [place] [address] Allergies, Adverse Reactions, Alerts Substance [...] Care Member Role: PCP Address: Address: [address] [place] [address]- Care Team Related Persons Name: ESTRELAL RICHEY Address: home [address] [place] [address] Name: PAOLA TORRES Address: home [address] [place] [address]
--- OUTSIDE RECORDS SUMMARY | 2024-06-04 07:55 | XMS_ITS | Continuity of Care Document ---
Author Organization [facility] Address [address] [place] [address]- Care Team Providers Care Camera Maker Name Role Phone Srinath Baker MD Primary Care Physician [phone] [place] [facility] [place]/21[place]24 - 02/20/24 [facility] [address] [place], [place] [address] Allergies, Adverse [...] Care Member Role: PCP Address: Address: [address] [place] [address]- Care Team Related Persons Name: ESTRELLA RICHEY Address: home [address] [place] [address] Name: PAOLA TORRES Address: home [address] [place] [address]
--- OUTSIDE RECORDS SUMMARY | 2024-06-04 07:55 | XMS_ITS | Continuity of Care Document ---
Author Organization [facility] Address [address], [address] [place] [address]- Care Team Providers Care Central Office Mechanic Name Role Phone Srinath Baker MD Primary [id number] - 08/05/[facility] [address] [place], [place] [address] Attending Physician: Meg Hughes DO Allergies, Adverse Reactions, [...] Gm, 0 Refills, Maintenance, 04/19/22 11:53:00 EDT, [facility]/pharmacy #[id number], Partial fill upon patient request if the [...] Personnel Name: Srinath Baker MD Address: Address: [address] [place] [address]
== END 2024-06-02 22:28 | disposition home or self-care (01) ==
PROVIDERS: Emergency Provider Emergency Medicine; PCP Internal Medicine
DX: S80.01XA Contusion of right knee, initial encounter (principal); S60.222A Contusion of left hand, initial encounter; S60.221A Contusion of right hand, initial encounter; S80.211A Abrasion, right knee, initial encounter; W01.0XXA Fall on same level from slipping, tripping and stumbling without subsequent striking against object, initial encounter; Y93.89 Activity, other specified; Y92.480 Sidewalk as the place of occurrence of the external cause; Y99.0 Civilian activity done for income or pay
CPT/HCPCS: 73564; 99283